=== PATIENT | female | born 1960 | race African-American/Black ===

== ENCOUNTER 2017-01-01 03:59 | Emergency (ER) | payer MEDICARE, OTHER ==
[~2017-01-01 03:59] MED LIST: ALBU1.25 NEB; FURO20 PO; LEVO.1 PO; PERC10TA27 PO; SYMB80AE INH; TIZA4 PO; VENTAER INH
[2017-01-01 04:02] VITALS: BP 137/71; PULSE 91; RESP 24; TEMP 98.1; O2SAT 95
[2017-01-01 04:24] VITALS: BP 172/77; PULSE 86; RESP 24; O2SAT 95
[2017-01-01] MEDS ORDERED: LEVO.1 PO (04:24)
[2017-01-01] MEDS ORDERED: SYMB80AE INH (04:24)
[2017-01-01] MEDS ORDERED: ZANA4CAP PO (04:24)
[2017-01-01] MEDS ORDERED: ALBUAER3 INH ×2 (04:24→05:22)
[2017-01-01] MEDS ORDERED: FURO1TAB60 PO (04:24)
[2017-01-01] MEDS ORDERED: PERC10TA27 PO (04:24)
[2017-01-01] MEDS ORDERED: SODIUM CHLORIDE 0.9% FLUSH 5 ML FLUSH IVF PRN (04:30)
[2017-01-01] MEDS ORDERED: methylPREDNISolone SOD SUCC 125 MG/2 ML VIAL IVP ONE (04:30)
[2017-01-01] MEDS: RESP: ALBUTEROL 2.5 MG/IPRATROPIUM 0.5 MG NEB (SCH) INH (04:50)
[2017-01-01] MEDS ORDERED: PRED20 PO (05:22)
[2017-01-01] MEDS ORDERED: ALBU0.08 NEB (05:22)
--- NOTE | 2017-01-01 05:23 | PD ---
HPI Chief Complaint: Respiratory Symptoms Time Seen by Provider: 04:17 Travel History International Travel<30 days: No Contact w/Intl Traveler<30days: No Traveled to known affect area: No History of Present Illness HPI 52-year-old female with a history of asthma arrives with dyspnea. She ran out of nebulizers. Occasional cough is reported. She's had no fever. Onset gradual. Timing is constant. PFSH Past Medical History Hx Anticoagulant Therapy: No Asthma: Yes Blood Disorders: No Cancer: No Cardiovascular Problems: No Chemotherapy: No Cerebrovascular Accident: No Diabetes: No Diminished Hearing: No Endocrine: No Genitourinary: No Hepatitis: No Hiatal Hernia: No Immune Disorder: No Medical other: Yes (OSTEO ARTHRITIS-BILATERAL KNEES) Musculoskeletal: No Neurologic: No Psychiatric: No Respiratory: Yes (ASTHMA/COPD) Thyroid Disease: No ?: Not Menopausal: Yes : 1 Ectopic : Yes (15 YRS. AGO) Past Surgical History Gynecologic Surgery: Yes (ECTOPIC ) Hysterectomy: No Oral Surgery: Yes (TONSILLECTOMY) Pacemaker: No Other Surgery: Yes Social History Alcohol Use: No Tobacco Use: No Substance Use: No Allergies-Medications (Allergen,Severity, Reaction): Coded Allergies: Shrimp (Verified Allergy, Severe, HIVES, 01/01/17) Sulfa (Verified Allergy, Severe, HIVES, 01/01/17) Aspirin (Verified Allergy, Intermediate, Nausea/Vomiting, 01/01/17) Reported Meds & Prescriptions Reported Meds & Active Scripts Active Albuterol Neb (Albuterol Sulfate) 2.5 Mg/3 Ml Neb 2.5 Mg NEB TID NEB PRN Prednisone 20 Mg Tab 40 Mg PO DAILY 4 Days Take 40 mg (2 tablets) daily for 5 days Proair Hfa 8.5 GM Inh (Albuterol Sulfate) 90 Mcg/Act Aer 2 Puff INH Q6H PRN 108 mcg/actuation Reported Symbicort Inh (Budesonide/Formoterol Fumarate) 80-4.5 Mcg/Act Aero Unknown Dose INH Q12HR Zanaflex (Tizanidine HCl) 4 Mg Cap 4 Mg PO Q8HR Proair Hfa 8.5 GM Inh (Albuterol Sulfate) 90 Mcg/Act Aer Unknown Dose INH Q4H PRN 108 mcg/actuation Lasix (Furosemide) 40 Mg Tab 40 Mg PO DAILY Synthroid (Levothyroxine Sodium) 100 Mcg Tab 100 Mcg PO DAILY Percocet (Oxycodone-Acetaminophen) 10-325 mg Tab 1 Tab PO Q6H PRN Review of Systems General / Constitutional: No: Fever, Chills Cardiovascular: No: Chest Pain or Discomfort Respiratory: Positive: Cough, Wheezing Physical Exam Narrative GENERAL: 56-year-old female mild dyspnea SKIN: Warm and dry. CARDIOVASCULAR: Regular rate and rhythm. No murmur appreciated. RESPIRATORY: Wheezing present. No accessory muscle use Data Data Last Documented VS Vital Signs Date Time Temp Pulse Resp B/P Pulse Ox O2 Delivery O2 Flow Rate FiO2 01/01/17 05:42 90 18 148/87 97 01/01/17 04:38 Aerosol Mask 01/01/17 04:02 98.1 Orders Iv Access Insert/Monitor (01/01/17 04:23) Ecg Monitoring (01/01/17 04:23) Oximetry (01/01/17 04:23) Oxygen Administration (01/01/17 04:23) Sodium Chloride 0.9% Flush (Ns Flush) (01/01/17 04:30) Methylprednisolone So Succ Inj (Solumedr (01/01/17 04:30) Albuterol-Ipratropium Neb (Duoneb Neb) (01/01/17 04:30) Albuterol Hfa Inh (Proair Hfa Inh) (01/01/17 05:45) MDM Medical Decision Making Medical Screen Exam Complete: Yes Emergency Medical Condition: Yes Medical Record Reviewed: Yes Differential Diagnosis Asthma, COPD, pneumonia Narrative Course Wheezing resolved. Patient ready for discharge. Diagnosis Primary Impression: Wheezing Referrals: Dirk Hamilton MD call for appointment Additional Instructions: You have a choice when it comes to health care, and we are glad that you chose [facility]. Hopefully, we have met your expectations on today's visit. You are welcome to return to [facility] at any time, as we are committed to meeting the health care needs of our community. Med/Other Pt SpecificInfo: Prescription(s) given Scripts Albuterol Neb 2.5 Mg/3 Ml Neb2.5 Mg NEB TID NEB PRN (SHORTNESS OF BREATH) #60 NEBULE Ref 0 Prov:Rakesh Santiago MD 01/01/17 Prednisone 20 Mg Tab40 Mg PO DAILY 4 Days Ref 0 Take 40 mg (2 tablets) daily for 5 days Prov:Rakesh Santiago MD 01/01/17 Albuterol 8.5 GM Inh (Proair Hfa 8.5 GM Inh)90 Mcg/Act Aer2 Puff INH Q6H PRN ( SHORTNESS OF BREATH) #1 INHALER Ref 0 108 mcg/actuation Prov:Rakesh Santiago MD 01/01/17 Disposition: 01 DISCHARGE HOME Condition: Stable Rakesh Santiago MD Jan 01, 2017 05:23
[2017-01-01 05:42] VITALS: BP 148/87
[2017-01-01] MEDS ORDERED: ALBUTEROL SULFATE 90 MCG/ACT HFA 8 GM INHALER INH ONE (05:45)
== END 2017-01-01 06:47 | disposition home or self-care (01) ==
LOC: NEPE 03:59
DX: J45.909 Unspecified asthma, uncomplicated (principal); J44.9 Chronic obstructive pulmonary disease, unspecified
CPT/HCPCS: 94640; 94664; 96374; 99283; J2930

== ENCOUNTER 2017-12-17 17:43 | Emergency (ER) | payer MEDICARE, OTHER ==
[~2017-12-17] VITALS: Ht 162.6 cm; Wt 136.0 kg
[~2017-12-17 17:43] MED LIST changes: +ALBU0.08 NEB; -ALBU1.25 NEB; +ALBUAER3 INH; +FURO1TAB60 PO; -FURO20 PO; +PRED20 PO; -TIZA4 PO; -VENTAER INH; +ZANA4CAP PO
[2017-12-17 17:50] VITALS: BP 171/79; PULSE 97; RESP 16; TEMP 98.5; O2SAT 98
[2017-12-17] MEDS ORDERED: ROBA750T PO (20:21)
[2017-12-17] MEDS ORDERED: ORPHENADRINE INJ 60 MG/2 ML AMP IM ONE (20:30)
[2017-12-17] MEDS ORDERED: KETOROLAC TROMETHAMINE 60 MG/2 ML (IM) VIAL IM ONE (20:30)
--- NOTE | 2017-12-17 20:47 | PD ---
HPI Chief Complaint: Fall Time Seen by Provider: 20:26 Travel History International Travel<30 days: No Contact w/Intl Traveler<30days: No Traveled to known affect area: No History of Present Illness HPI Patient is a 57-year-old female presenting to the emergency department for evaluation of right thigh and right knee pain. Patient states she tripped Wednesday while going up steps. She did not fall onto her knee, she states she caught herself however since that time she has had tightness in her thigh and is unable to completely bear weight on her knee. She reports the pain is again of 10 and states it is cramping in nature. Symptom onset was gradual, there are no alleviating factors. Pain is exacerbated with movement. Patient denies any other injury, there was no loss of consciousness, no bladder or bowel incontinence, no saddle paresthesia. PFSH Past Medical History Asthma: Yes Medical other: Yes (OSTEO ARTHRITIS-BILATERAL KNEES) Respiratory: Yes (ASTHMA/COPD) Immunizations Current: Yes Tetanus Vaccination: Unknown Influenza Vaccination: No ?: Not Menopausal: Yes : 1 Ectopic : Yes (15 YRS. AGO) Past Surgical History Gynecologic Surgery: Yes (ECTOPIC ) Oral Surgery: Yes (TONSILLECTOMY) Other Surgery: Yes Social History Alcohol Use: No Tobacco Use: No Substance Use: No Allergies-Medications (Allergen,Severity, Reaction): Coded Allergies: Sulfa (Sulfonamide Antibiotics) (Unverified Allergy, Severe, HIVES, 12/17/17 ) shrimp (Unverified Allergy, Severe, HIVES, 12/17/17) aspirin (Unverified Allergy, Intermediate, Nausea/Vomiting, 12/17/17) Reported Meds & Prescriptions Reported Meds & Active Scripts Active Albuterol Neb (Albuterol Sulfate) 2.5 Mg/3 Ml Neb 2.5 Mg NEB TID NEB PRN Prednisone 20 Mg Tab 40 Mg PO DAILY 4 Days Take 40 mg (2 tablets) daily for 5 days Proair Hfa 8.5 GM Inh (Albuterol Sulfate) 90 Mcg/Act Aer 2 Puff INH Q6H PRN 108 mcg/actuation Reported Robaxin (Methocarbamol) 750 Mg Tab 750 Mg PO QID Symbicort Inh (Budesonide/Formoterol Fumarate) 80-4.5 Mcg/Act Aero Unknown Dose INH Q12HR Proair Hfa 8.5 GM Inh (Albuterol Sulfate) 90 Mcg/Act Aer Unknown Dose INH Q4H PRN 108 mcg/actuation Synthroid (Levothyroxine Sodium) 100 Mcg Tab 100 Mcg PO DAILY Percocet (Oxycodone-Acetaminophen) 10-325 mg Tab 1 Tab PO Q6H PRN Review of Systems Except as stated in HPI: all other systems reviewed are Neg Musculoskeletal: Positive: Myalgias, Cramping, Pain Physical Exam Narrative GENERAL: Obese, well-developed, alert -[place] female. Presenting in no acute distress. SKIN: Warm and dry. HEAD: Normocephalic. EYES: No scleral icterus. No injection or drainage. NECK: Supple, trachea midline. No JVD or lymphadenopathy. CARDIOVASCULAR: Regular rate and rhythm without murmurs, gallops, or rubs. RESPIRATORY: Breath sounds equal bilaterally. No accessory muscle use. GASTROINTESTINAL: Abdomen soft, non-tender, nondistended. MUSCULOSKELETAL: No cyanosis, or edema. No obvious deformities. Tenderness to palpation lateral aspect of right thigh, right anterior knee diffusely. No significant edema noted. BACK: Nontender without obvious deformity. No CVA tenderness. Data Data Last Documented VS Vital Signs Date Time Temp Pulse Resp B/P (MAP) Pulse Ox O2 Delivery O2 Flow Rate FiO2 12/17/17 17:50 98.5 97 16 171/79 (109) 98 Orders Orders Knee, Complete (4vws) (12/17/17 ) Ketorolac Inj (Toradol Inj) (12/17/17 20:30) Orphenadrine Inj (Norflex Inj) (12/17/17 20:30) MDM Medical Decision Making Medical Screen Exam Complete: Yes Emergency Medical Condition: Yes Interpretation(s) Vital Signs Date Time Temp Pulse Resp B/P (MAP) Pulse Ox O2 Delivery O2 Flow Rate FiO2 12/17/17 17:50 98.5 97 16 171/79 (109) 98 Differential Diagnosis Fracture versus sprain versus strain versus muscle spasm versus other Narrative Course She presented for evaluation of right knee and right thigh pain. Patient appears well, vital signs are stable. X-ray ordered and pending. X-ray of the right knee is negative for acute abnormality, does show arthritic changes. Patient was given Toradol and Norflex in the emergency department, she is placed to continue conservative management. Patient will be provided with a prescription for ibuprofen and Flexeril. She is encouraged to alternate heat and ice the affected area, continue range of motion exercises, avoid bed rest, avoid exacerbating activities. She is encouraged to follow-up with her primary doctor or return to emergency department for any new or worsening symptoms. Patient verbalized understanding. Patient stable for discharge. Diagnosis Primary Impression: Fall Qualified Codes: W19.XXXA - Unspecified fall, initial encounter Additional Impressions: Knee joint pain Qualified Codes: M25.561 - Pain in right knee Muscle strain Referrals: Primary Care Physician Patient Instructions: General Instructions, Knee Exercises (GEN), Knee Pain (ED ), Muscle Spasm (ED), Muscle Strain (ED) Additional Instructions: Follow-up with your primary doctor Alternate heat and ice the affected area, continue range of motion exercises, avoid exacerbating activities, avoid bed rest Pick medications as directed Return to emergency department for any new worsening symptoms Med/Other Pt SpecificInfo: Prescription(s) given Scripts Lidocaine (Lidoderm) 5 % Adh..patch 1 PATCH TOPICAL DAILY Y for PAIN SCALE 1 TO 10 for 10 Days Prov: Nel Andres 12/17/17 Cyclobenzaprine (Flexeril) 10 Mg Tab 10 MG PO TID Y for MUSCLE SPASM, #30 TAB 0 Refills Prov: Nel Andres 12/17/17 Disposition: 01 DISCHARGE HOME Condition: Stable Nel Andres Dec 17, 2017 20:47
--- NOTE | 2017-12-17 20:57 | RADRPT ---
EXAM DATE/TIME: 12/17/2017 20:40 [facility] COMPARISON: KNEE RIGHT COMPLETE (4VWS), March 26, 2015, 23:54. INDICATIONS : Right knee pain. Tripped and fell going up stairs. MEDICAL HISTORY : Right knee Arthritis. SURGICAL HISTORY : None. ENCOUNTER: Initial ACUITY: 1 week PAIN SCORE: 7/10 LOCATION: Right Medial side of right knee. FINDINGS: Four view examination of the right knee demonstrates no evidence of fracture or dislocation. There co ntinues to be primary bony degenerative changes with narrowing of the medial joint compartment. The d egenerative changes are mildly increased compared to the prior study. No joint effusion. The patella grossly intact.. CONCLUSION: 1. No acute fracture or joint dislocation. 2. 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 Chaz Gong MD on December 17, 2017 at 20:54 Board Certified Radiologist. This report was verified electronically.
[2017-12-17] MEDS ORDERED: LIDO1ADH4 TOPICAL (21:16)
[2017-12-17] MEDS ORDERED: CYCL10TA PO (21:16)
== END 2017-12-17 22:02 | disposition home or self-care (01) ==
LOC: NEPD 17:43
DX: S76.911A Strain of unspecified muscles, fascia and tendons at thigh level, right thigh, initial encounter (principal); M25.561 Pain in right knee; J45.909 Unspecified asthma, uncomplicated; J44.9 Chronic obstructive pulmonary disease, unspecified; W10.9XXA Fall (on) (from) unspecified stairs and steps, initial encounter; Z79.51 Long term (current) use of inhaled steroids; Z79.899 Other long term (current) drug therapy; Z88.2 Allergy status to sulfonamides; Z88.6 Allergy status to analgesic agent
CPT/HCPCS: 73564; 96372; 99284; J1885; J2360

== ENCOUNTER 2018-03-15 05:23 | Emergency (ER) | payer MEDICARE, OTHER ==
[2018-03-15] MEDS: FUROSEMIDE 20 MG/2 ML VIAL IV PUSH (05:58)
[2018-03-15 06:13] LABS: BASOPHIL # 0.1 TH/MM3 (0-0.2); BASOPHIL % 0.7 % (0.0-2.0); EOSINOPHIL # 0.3 TH/MM3 (0-0.4); EOSINOPHIL % 2.3 % (0.0-4.0); HEMATOCRIT 37.7 % (35.0-46.0); HEMO FLAGS DIFF FINAL; HEMOGLOBIN 12.1 GM/DL (11.6-15.3); LYMPH % 23.1 % (9.0-44.0); LYMPHOCYTE # 2.9 TH/MM3 (1.0-4.8); MEAN CELL VOLUME 84.4 FL (80.0-100.0); MEAN PLATELET VOLUME 7.9 FL (7.0-11.0); MONO % 9.5 % (0.0-8.0); MONOCYTE # 1.2 TH/MM3 (0-0.9); NEUT % 64.4 % (16.0-70.0); PLATELET COUNT 348 TH/MM3 (150-450); RED BLOOD COUNT 4.47 MIL/MM3 (4.00-5.30); WHITE BLOOD COUNT 12.5 TH/MM3 (4.0-11.0)
[2018-03-15 06:27] LABS: ALBUMIN 3.5 GM/DL (3.4-5.0); ALT (GPT) 24 U/L (10-53); ANION GAP 9 MEQ/L (5-15); AST (GOT) 21 U/L (15-37); BICARBONATE 28.4 MEQ/L (21.0-32.0); BLOOD UREA NITROGEN 13 MG/DL (7-18); CALCIUM 8.9 MG/DL (8.5-10.1); CHLORIDE 104 MEQ/L (98-107); CREATININE 0.73 MG/DL (0.50-1.00); GLOMERULAR FILTRATION RATE 100 ML/MIN (>89); GLUCOSE,RANDOM 98 MG/DL (74-106); MAGNESIUM 2.3 MG/DL (1.5-2.5); POTASSIUM 3.8 MEQ/L (3.5-5.1); SODIUM (NA) 141 MEQ/L (136-145)
[2018-03-15 06:38] LABS: ALKALINE PHOSPHATASE 88 U/L (45-117); TOTAL BILIRUBIN ADULT 0.5 MG/DL (0.2-1.0); TOTAL PROTEIN 7.2 GM/DL (6.4-8.2)
[2018-03-15 07:02] LABS: BACTERIA, URINE RARE /hpf; BILIRUBIN, URINE NEG (NEG); BLOOD, URINE NEG (NEG); GLUCOSE,URINE NEG (NEG); KETONE, URINE NEG (NEG); NITRITE,URINE NEG (NEG); SQUAMOUS EPITHELIAL CELL URINE 5 /hpf (0-5); URINE COLOR LIGHT-YELLOW (YELLW/STRAW); URINE LEUKOCYTE ESTERASE NEG (NEG)
[2018-03-15 07:03] LABS: COMMENT (UR) CULT NOT INDICATED; CULTURE IF INDICATED CULT NOT INDICATED
[2018-03-15 07:55] LABS: B-TYPE NATRIURETIC PEPTIDE 16 PG/ML (0-100)
== END 2018-03-15 08:06 | disposition home or self-care (01) ==
LOC: NEPE 05:23
DX: R60.0 Localized edema (principal); E03.9 Hypothyroidism, unspecified; J44.9 Chronic obstructive pulmonary disease, unspecified; G47.30 Sleep apnea, unspecified; Z79.899 Other long term (current) drug therapy; Z87.891 Personal history of nicotine dependence
CPT/HCPCS: 80053; 81001; 83735; 83880; 84443; 85025; 93971; 96374; 99284-25